=== PATIENT | female | born 1945 | race Caucasian/White ===

== ENCOUNTER 2017-07-13 14:00 | Emergency (ER) | payer OTHER ==
[~2017-07-13] VITALS: Ht 144.8 cm; Wt 68.0 kg
[2017-07-13 14:08] VITALS: BP 160/104
[2017-07-13] MEDS ORDERED: ASPIRIN 325 MG TAB PO ONE (14:25)
[2017-07-13 15:32] LABS: HEMATOCRIT 41.2 % (36-48); MEAN CORPUSCULAR HEMOGLOBIN 39 pg (27-31); MEAN CORPUSCULAR HGB CONC 34 g/dL (33-37); MEAN CORPUSCULAR VOLUME 115 fL (80-94); PLATELET COUNT (AUTO) 109 K/uL (140-450); RED BLOOD CELL COUNT(AUTO) 3.59 MIL/uL (4.20-5.40); RED CELL DISTRIBUTION WIDTH 16.9 % (11.6-13.7); WHITE BLOOD COUNT (AUTO) 4.2 K/uL (4.8-10.8)
[2017-07-13 15:36] LABS: ANION GAP 9.8 (8-16); CARBON DIOXIDE 27.6 mmol/L (21-32); CHLORIDE 106 mmol/L (98-107); CREATININE 0.8 mg/dL (0.6-1.3); GLUCOSE 233 mg/dL (74-106); POTASSIUM 3.4 mmol/L (3.5-5.1); SODIUM SERUM 140 mmol/L (136-145); UREA NITROGEN, BLOOD 12 mg/dL (7-18)
[2017-07-13 15:43] LABS: ASPARTATE AMINOTRANSFERASE 45 U/L (15-37); TOTAL BILIRUBIN 0.7 mg/dL (0.0-1.0)
--- NOTE | 2017-07-13 15:54 | NUR ---
Patient transferred to [address] via [address] by cathleen. RN evaluating patient.
[2017-07-13 16:21] LABS: LYMPHOCYTES % (MANUAL) 8 % (20-46); MONOCYTES % (MANUAL) 1 % (5-12)
[2017-07-13 16:28] VITALS: BP 143/87
--- NOTE | 2017-07-13 16:30 | NUR ---
Patient discharged with v/s stable. Written and verbal after care instructions given and explained. Patient alert, oriented and verbalized understanding of instructions. Ambulatory with steady gait. All questions addressed prior to discharge. ID band removed. Patient advised to follow up with PMD. Rx of LEVAQUIN given. Patient educated on indication of medication including possible reaction and side effects. Opportunity to ask questions provided and answered.
--- NOTE | 2017-07-14 12:00 | NUR ---
TWO ATTEMPTS WERE MADE TO CONTACT THIS PATIENT VIA TELEPHONE, THE FIRST WAS DISCONNECTED BY PATIENT AND SECOND THE LINE WAS BUSY.
== END 2017-07-13 16:25 | disposition home or self-care (01) ==
LOC: MED 14:53
DX: J18.9 Pneumonia, unspecified organism (principal); I10 Essential (primary) hypertension; Z88.5 Allergy status to narcotic agent; Z88.1 Allergy status to other antibiotic agents
CPT/HCPCS: 36415; 71010; 80053; 83880; 84484; 85025; 93005; 99285